=== PATIENT | female | born 1995 | race Caucasian/White ===

== ENCOUNTER 2017-10-28 08:48 | Inpatient (IN) | payer MEDICAID ==
[~2017-10-28] VITALS: Ht 160 cm; Wt 71.9 kg
[2017-10-28 09:40] LABS: BASOPHILS % (AUTO) 0.8 % (0.0-2.0); EOSINOPHILS % (AUTO) 8.2 % (1.0-6.0); HEMATOCRIT 47.7 % (36-46); HEMOGLOBIN 16.3 g/dL (12.0-16.0); LYMPHOCYTES # (AUTO) 1.9 K/uL (1.0-4.8); LYMPHOCYTES % (AUTO) 22.5 % (22.0-44.0); MEAN CORPUSCULAR HGB CONC 34.1 G/dL (31.0-37.0); MEAN CORPUSCULAR VOLUME 94 fL (80-100); MONOCYTES # (AUTO) 0.5 K/uL (0.1-1.0); MONOCYTES % (AUTO) 5.6 % (2.0-9.0); NEUTROPHILS # (AUTO) 5.4 K/uL (1.8-7.7); NEUTROPHILS % (AUTO) 62.9 % (40.0-70.0); PLATELET COUNT (AUTO) 324 K/uL (150-450); RED BLOOD CELL COUNT(AUTO) 5.09 MIL/uL (4.00-5.20); RED CELL DISTRIBUTION WIDTH 13.1 % (11.5-14.5)
[2017-10-28 09:52] LABS: ANION GAP 10 mmol/L (8-16); CALCIUM, TOTAL 9.5 mg/dL (8.8-10.5); CARBON DIOXIDE 22 mmol/L (22-29); CHLORIDE 105 mmol/L (98-107); CREATININE 0.64 mg/dL (0.60-1.30); GLOMERULAR FILTR. RATE CALC > 60 mL/min (>60); GLUCOSE,RANDOM 86 mg/dL (70-110); POTASSIUM 3.9 mmol/L (3.5-5.1); SODIUM SERUM 137 mmol/L (136-145); UREA NITROGEN, BLOOD 9 mg/dL (7-18)
[2017-10-28 09:59] LABS: ALANINE AMINOTRANSFERASE 16 U/L (12-78); ALBUMIN 3.7 g/dL (3.4-5.0); ALKALINE PHOSPHATASE 93 U/L (46-116); ASPARTATE AMINOTRANSFERASE 14 U/L (15-37); TOTAL PROTEIN, SERUM 7.5 g/dL (6.4-8.2)
[2017-10-28] MEDS ORDERED: LORazepam 2 MG TABLET PO ONE (10:00)
[2017-10-28 10:10] LABS: HCG,QUANTITATIVE < 1 mIU/mL (0-6)
[2017-10-28] MEDS ORDERED: IBUPROFEN 400 MG TABLET PO PRN (10:15)
[2017-10-28] MEDS ORDERED: ACETAMINOPHEN 325 MG TABLET PO PRN ×2 (10:15→20:45)
[2017-10-28 14:21] LABS: AMPHET/METH SCREEN,URINE NEGATIVE (NEGATIVE); BARBITURATE SCREEN, URINE NEGATIVE (NEGATIVE); BENZODIAZEPINES SCREEN,URINE NEGATIVE (NEGATIVE); CANNABINOID SCREEN,URINE POSITIVE (NEGATIVE); COCAINE SCREEN,URINE NEGATIVE (NEGATIVE); METHADONE SCREEN, URINE NEGATIVE (NEGATIVE); OPIATE SCREEN,URINE NEGATIVE (NEGATIVE)
[2017-10-28 14:22] LABS: PHENCYCLIDINE SCREEN,URINE NEGATIVE (NEGATIVE)
[2017-10-28] MEDS ORDERED: DiphenhydrAMINE HCL 50 MG/ML VIAL ONE (14:22)
[2017-10-28] MEDS ORDERED: HALOPERIDOL LACTATE 5 MG/ML VIAL ONE (14:22)
[2017-10-28] MEDS ORDERED: LORazepam 2 MG/ML VIAL ONE (14:22)
[2017-10-28] MEDS ORDERED: LORazepam 2 MG/ML VIAL IM ONE (14:30)
[2017-10-28] MEDS ORDERED: DiphenhydrAMINE HCL 50 MG/ML VIAL IM ONE (14:30)
[2017-10-28] MEDS ORDERED: HALOPERIDOL LACTATE 5 MG/ML VIAL IM ONE (14:30)
[2017-10-28 17:09] VITALS: BP 129/73
[2017-10-28] MEDS ORDERED: GuaiFENesin/D-METHORPHAN [SUGAR-FREE] 200-20MG/10 ML SYRUP UDCUP PO PRN (20:45)
[2017-10-28] MEDS ORDERED: LOPERAMIDE HCL 2 MG CAPSULE PO PRN (20:45)
[2017-10-28] MEDS ORDERED: PETROLATUM,WHITE 71 GM JELLY TP PRN (20:45)
[2017-10-28] MEDS ORDERED: CloNIDine HCL 0.1 MG TABLET PO PRN (20:45)
[2017-10-28] MEDS ORDERED: MAG HYDROX/AL HYDROX/SIMETH ES 30 ML SUSPENSION UDCUP PO PRN (20:45)
[2017-10-28] MEDS ORDERED: NICOTINE 14 MG/24 HOUR PATCH TD PRN (20:45)
[2017-10-28] MEDS ORDERED: ONDANSETRON HCL 4 MG TABLET PO PRN (20:45)
[2017-10-28] MEDS ORDERED: MAGNESIUM HYDROXIDE SUSPENSION 30 ML UDCUP PO PRN (20:45)
[2017-10-28] MEDS ORDERED: DOCUSATE SODIUM 100 MG CAPSULE PO PRN (20:45)
[2017-10-28] MEDS: ALBUTEROL SULFATE HFA 90 MCG/PUFF 8 GM INHALER IH PRN (20:46)
[2017-10-28] MEDS: ZOLPIDEM TARTRATE 10 MG TABLET PO PRN (21:11)
[2017-10-29 03:36] VITALS: BP 116/68
[2017-10-29] MEDS: LORazepam 2 MG TABLET PO PRN ×3 (03:38→17:05)
[2017-10-29] MEDS: ALBUTEROL SULFATE HFA 90 MCG/PUFF 8 GM INHALER IH PRN (03:39)
[2017-10-29 08:00] VITALS: BP 132/82
[2017-10-29 08:12] LABS: BASOPHILS % (AUTO) 0.8 % (0.0-2.0); EOSINOPHILS % (AUTO) 8.3 % (1.0-6.0); HEMOGLOBIN 16.7 g/dL (12.0-16.0); LYMPHOCYTES # (AUTO) 2.1 K/uL (1.0-4.8); LYMPHOCYTES % (AUTO) 22.8 % (22.0-44.0); MEAN CORPUSCULAR HEMOGLOBIN 32.4 pg (26.0-34.0); MEAN CORPUSCULAR HGB CONC 34.7 G/dL (31.0-37.0); MEAN CORPUSCULAR VOLUME 93 fL (80-100); MONOCYTES # (AUTO) 0.6 K/uL (0.1-1.0); MONOCYTES % (AUTO) 6.2 % (2.0-9.0); NEUTROPHILS # (AUTO) 5.8 K/uL (1.8-7.7); NEUTROPHILS % (AUTO) 61.9 % (40.0-70.0); PLATELET COUNT (AUTO) 311 K/uL (150-450); RED BLOOD CELL COUNT(AUTO) 5.15 MIL/uL (4.00-5.20); RED CELL DISTRIBUTION WIDTH 12.9 % (11.5-14.5)
[2017-10-29 08:18] LABS: HEMOGLOBIN A1C 4.6 % (4.5-6.2)
[2017-10-29 08:35] LABS: ALANINE AMINOTRANSFERASE 20 U/L (12-78); ALBUMIN 3.9 g/dL (3.4-5.0); ALKALINE PHOSPHATASE 91 U/L (46-116); ANION GAP 12 mmol/L (8-16); ASPARTATE AMINOTRANSFERASE 14 U/L (15-37); BILIRUBIN,TOTAL 1.1 mg/dL (0.1-1.0); CALCIUM, TOTAL 8.9 mg/dL (8.8-10.5); CARBON DIOXIDE 22 mmol/L (22-29); CHLORIDE 104 mmol/L (98-107); CHOLESTEROL 198 mg/dL (131-200); CREATININE 0.71 mg/dL (0.60-1.30); GLOMERULAR FILTR. RATE CALC > 60 mL/min (>60); GLUCOSE,RANDOM 56 mg/dL (70-110); HDL CHOLESTEROL 49 mg/dL (40-60); LDL CHOL (CALC.) 125 mg/dL (0-130); POTASSIUM 4.3 mmol/L (3.5-5.1); SODIUM SERUM 138 mmol/L (136-145); THYROID STIMULATING HORMONE 0.85 uIU/mL (0.36-3.74); TOTAL PROTEIN, SERUM 7.3 g/dL (6.4-8.2); TRIGLYCERIDES 122 mg/dL (15-150); UREA NITROGEN, BLOOD 13 mg/dL (7-18)
[2017-10-29] MEDS: OLANZapine 5 MG RAPDIS TABLET PO PRN ×2 (09:59→17:05)
[2017-10-29 16:57] VITALS: BP 108/68
[2017-10-29] MEDS: ZOLPIDEM TARTRATE 10 MG TABLET PO PRN (21:10)
[2017-10-30] MEDS: ALBUTEROL SULFATE HFA 90 MCG/PUFF 8 GM INHALER IH PRN (04:56)
[2017-10-30] MEDS: LORazepam 2 MG TABLET PO PRN ×3 (04:56→17:00)
[2017-10-30] MEDS: OLANZapine 5 MG RAPDIS TABLET PO PRN (04:56)
[2017-10-30 06:50] VITALS: BP 121/66
[2017-10-30 08:38] VITALS: BP 136/68
[2017-10-30 16:10] VITALS: BP 112/69
[2017-10-30] MEDS: QUEtiapine FUMARATE 25 MG TABLET PO SCH (17:00)
[2017-10-30] MEDS: QUEtiapine FUMARATE 100 MG TABLET PO SCH (21:26)
[2017-10-31] MEDS: ZOLPIDEM TARTRATE 10 MG TABLET PO PRN ×2 (02:30→03:04)
[2017-10-31 07:27] VITALS: BP 136/84
[2017-10-31] MEDS: LORazepam 2 MG TABLET PO PRN ×2 (07:27→16:48)
[2017-10-31] MEDS: QUEtiapine FUMARATE 25 MG TABLET PO SCH ×2 (08:05→16:47)
[2017-10-31] MEDS ORDERED: HALOPERIDOL LACTATE 5 MG/ML VIAL ONE (08:48)
[2017-10-31] MEDS ORDERED: LORazepam 2 MG/ML VIAL ONE (08:48)
[2017-10-31] MEDS ORDERED: HALOPERIDOL LACTATE 5 MG/ML VIAL IM ONE (08:50)
[2017-10-31] MEDS ORDERED: LORazepam 2 MG/ML VIAL IM ONE (08:50)
[2017-10-31] MEDS: OLANZapine 5 MG RAPDIS TABLET PO PRN (08:52)
[2017-10-31 08:54] VITALS: BP 113/68
[2017-10-31 16:23] VITALS: BP 116/77
[2017-10-31] MEDS: QUEtiapine FUMARATE 100 MG TABLET PO SCH (20:39)
[2017-11-01 02:27] VITALS: BP 100/72
[2017-11-01 08:43] VITALS: BP 139/67
[2017-11-01] MEDS: QUEtiapine FUMARATE 25 MG TABLET PO SCH ×2 (08:43→16:04)
[2017-11-01] MEDS: LORazepam 2 MG TABLET PO PRN ×3 (08:48→20:12)
[2017-11-01] MEDS: BuPROPion HCL 100 MG SR TABLET PO SCH (13:41)
[2017-11-01 16:00] VITALS: BP 116/76
[2017-11-01 16:59] VITALS: BP 116/76
[2017-11-01] MEDS: IBUPROFEN 400 MG TABLET PO PRN (17:01)
[2017-11-01] MEDS: QUEtiapine FUMARATE 100 MG TABLET PO SCH (20:10)
[2017-11-01] MEDS: ZOLPIDEM TARTRATE 10 MG TABLET PO PRN ×2 (20:10)
[2017-11-02 07:08] VITALS: BP 109/70
[2017-11-02] MEDS: QUEtiapine FUMARATE 25 MG TABLET PO SCH ×2 (08:43→16:12)
[2017-11-02] MEDS: BuPROPion HCL 100 MG SR TABLET PO SCH ×2 (08:43→12:46)
[2017-11-02 08:45] VITALS: BP 123/77
[2017-11-02] MEDS ORDERED: BuPROPion HCL 100 MG SR TABLET PO SCH (09:00)
[2017-11-02] MEDS: LORazepam 2 MG TABLET PO PRN ×2 (10:07→15:54)
[2017-11-02] MEDS: OLANZapine 5 MG RAPDIS TABLET PO PRN (18:37)
[2017-11-02] MEDS: ZOLPIDEM TARTRATE 10 MG TABLET PO PRN (20:26)
[2017-11-02] MEDS: QUEtiapine FUMARATE 100 MG TABLET PO SCH (20:26)
[2017-11-03 06:51] VITALS: BP 139/69
[2017-11-03] MEDS: QUEtiapine FUMARATE 100 MG TABLET PO SCH ×3 (08:03→20:14)
[2017-11-03] MEDS: BuPROPion HCL 150 MG SR TABLET PO SCH ×2 (08:03→12:15)
[2017-11-03 08:11] VITALS: BP 118/86
[2017-11-03] MEDS: IBUPROFEN 400 MG TABLET PO PRN (08:11)
[2017-11-03] MEDS: LORazepam 2 MG TABLET PO PRN (09:37)
[2017-11-03] MEDS: OLANZapine 5 MG RAPDIS TABLET PO PRN (09:37)
[2017-11-03 16:00] VITALS: BP 121/69
[2017-11-03] MEDS: ZOLPIDEM TARTRATE 10 MG TABLET PO PRN (21:44)
[2017-11-04] MEDS: LORazepam 2 MG TABLET PO PRN (04:01)
[2017-11-04 05:04] VITALS: BP 118/72
[2017-11-04] MEDS: BuPROPion HCL 150 MG SR TABLET PO SCH ×2 (08:03→12:15)
[2017-11-04] MEDS: QUEtiapine FUMARATE 100 MG TABLET PO SCH (08:03)
[2017-11-04 08:10] VITALS: BP 117/67
[2017-11-04] MEDS ORDERED: BUPR150SR PO (12:25)
[2017-11-04] MEDS ORDERED: QUET100T PO ×2 (12:25)
== END 2017-11-04 13:13 | disposition home or self-care (01) | DRG 751 ==
LOC: EMS 08:50 → B3A 11:08
PROVIDERS: ADMIT Psychiatry & Neurology Psychiatry; ATTEND Psychiatry & Neurology Psychiatry
DX: F33.2 Major depressive disorder, recurrent severe without psychotic features (principal); R17 Unspecified jaundice; S81.819A Laceration without foreign body, unspecified lower leg, initial encounter; F43.10 Post-traumatic stress disorder, unspecified; R06.4 Hyperventilation; S41.119A Laceration without foreign body of unspecified upper arm, initial encounter; F12.10 Cannabis abuse, uncomplicated; X78.9XXA Intentional self-harm by unspecified sharp object, initial encounter; F60.3 Borderline personality disorder; F90.9 Attention-deficit hyperactivity disorder, unspecified type; Z79.899 Other long term (current) drug therapy; Z91.5 Personal history of self-harm; Z71.51 Drug abuse counseling and surveillance of drug abuser; Y93.89 Activity, other specified; Y92.89 Other specified places as the place of occurrence of the external cause; Y99.8 Other external cause status
CPT/HCPCS: 83036; 84443; 96372; 99285; G0480; J1200; J1630; J2060; J3535

== ENCOUNTER 2020-11-15 00:28 | Emergency (ER) | payer MEDICAID ==
[~2020-11-15 00:28] MED LIST: BUPR150SR PO; QUET100T PO
== END 2020-11-15 00:48 | disposition left against medical advice (07) ==
LOC: EMS 00:31
DX: Z00.00 Encounter for general adult medical examination without abnormal findings (principal); Z53.21 Procedure and treatment not carried out due to patient leaving prior to being seen by health care provider